=== PATIENT | female | born 1955 | race Caucasian/White ===

== ENCOUNTER 2022-01-29 09:00 | Inpatient (IN) | payer MEDICARE, BC ==
[2022-01-29] VITALS (7 sets, daily range): BP systolic 81–90; BP diastolic 44–47
[~2022-01-29] VITALS: Ht 167.6 cm; Wt 49.0 kg
[2022-01-29] MEDS ORDERED: SODIUM CHLORIDE 0.9% 1000ML 1,000 ML IV STA ×2 (09:13→10:24)
[2022-01-29 09:36] LABS: BASOPHILS % 0.1 % (0.0-1.0); EOSINOPHILS # (AUTO) 0.1 (0.0-0.4); HEMOGLOBIN 12.4 g/dL (12.0-16.0); LYMPHOCYTES # (AUTO) 0.4 (1.0-3.2); LYMPHOCYTES % 3.8 % (18.0-39.1); MEAN CORPUSCULAR HEMOGLOBIN 31.5 pg (28-32); MEAN CORPUSCULAR HGB CONC 36.5 g/dL (31-35); MEAN CORPUSCULAR VOLUME 86.3 fL (81-99); MONOCYTES # (AUTO) 0.8 (0.2-0.8); MONOCYTES % 8.3 % (4.4-11.3); NEUTROPHILS # (AUTO) 7.8 (2.1-6.9); NEUTROPHILS % 84.4 % (38.7-80.0); PLATELET COUNT 227 x10e3/uL (140-360); RED BLOOD COUNT 3.94 x10e6/uL (3.6-5.1); RED CELL DISTRIBUTION WIDTH 14.1 % (11.7-14.4)
[2022-01-29] MEDS ORDERED: AMIODARONE HCL 150 MG/100 ML BAG IV ONE (09:45)
[2022-01-29 09:53] LABS: INR 1.16; PARTIAL THROMBOPLASTIN TIME 20.2 seconds (23.8-35.5); PROTHROMBIN TIME 15.8 seconds (11.9-14.5)
[2022-01-29] MEDS ORDERED: AMIODARONE 900MG 500 ML IV SCH ×2 (10:00→16:05)
[2022-01-29] MEDS ORDERED: METOPROLOL TARTRATE 25 MG TAB PO ONE (10:30)
[2022-01-29 10:44] LABS: ALANINE AMINOTRANSFERASE 21 IU/L (0-55); ALBUMIN 1.9 g/dL (3.5-5.0); ALBUMIN/GLOBULIN RATIO 0.7 (0.8-2.0); ALKALINE PHOSPHATASE 61 IU/L (40-150); ANION GAP 14.6 mmol/L (8-16); BLOOD UREA NITROGEN 38 mg/dL (7-26); BUN/CREATININE RATIO 55 (6-25); CALCIUM 7.8 mg/dL (8.4-10.2); CARBON DIOXIDE 16 mmol/L (22-29); CHLORIDE 100 mmol/L (98-107); CREATINE KINASE 28 IU/L (29-168); CREATININE, SERUM 0.69 mg/dL (0.57-1.11); GLUCOSE 113 mg/dL (74-118); MAGNESIUM 2.7 MG/DL (1.3-2.1); POTASSIUM 4.6 mmol/L (3.5-5.1); SODIUM 126 mmol/L (136-145)
[2022-01-29 10:56] LABS: LIPASE < 4 U/L (8-78)
[2022-01-29 11:01] LABS: FREE THYROXINE INDEX 1.1979 (1.4-3.8); THYROID STIMULATING HORMONE 0.861 uIU/mL (0.350-4.940)
[2022-01-29 12:36] LABS: COLOR,URINE YELLOW (YELLOW)
[2022-01-29 12:37] LABS: CLARITY,URINE CLEAR (CLEAR); KETONES,URINE NEGATIVE (NEGATIVE); LEUKOCYTE ESTERASE ,URINE NEGATIVE (NEGATIVE); NITRITE,URINE NEGATIVE (NEGATIVE); PROTEIN,URINE DIPSTICK NEGATIVE (NEGATIVE); URINE UROBILINOGEN 0.2 mg/dL (0.2 - 1)
[2022-01-29] MEDS ORDERED: ENOXAPARIN SOD INJ 60 MG/0.6 ML SYR SC SCH (12:45)
[2022-01-29 12:49] LABS: BAND NEUTROPHILS % (MANUAL) 7 %; LYMPHOCYTES % (MANUAL) 3 % (19-48); METAMYELOCYTES % (MANUAL) 4 % (0-0); MONOCYTES % (MANUAL) 4 % (3.4-9.0); MYELOCYTES % (MANUAL) 1 % (0-0); NEUTROPHILS % (MANUAL) 81 % (40-74); PLATELET ESTIMATE ADEQUATE; PLATELET MORPHOLOGY COMMENT NORMAL
[2022-01-29 12:50] LABS: RBC MORPHOLOGY COMMENT NORMAL
[2022-01-29 12:55] LABS: BACTERIA,URINE RARE /HPF; EPITHELIAL CELLS,URINE FEW /LPF; RBC,URINE 0-5 /HPF (0-5); TRANSITIONAL EPI CELLS,URINE RARE; WBC,URINE (MAN) 0-5 /HPF (0-5)
[2022-01-29] MEDS: VANCOMYCIN HCL 125 MG CAPSULE PO SCH ×2 (13:19→18:42)
[2022-01-29] MEDS: SODIUM BICARBONATE 8.4% 50 ML in DEXTROSE 5%/0.45% SOD CHL 1,000 ML IV SCH (16:46)
[2022-01-29] MEDS: ENOXAPARIN SOD INJ 60 MG/0.6 ML SYR SC SCH (17:26)
[2022-01-29] MEDS ORDERED: ALEVE220 M1 PO (18:39)
[2022-01-29] MEDS ORDERED: FERROUS SULFAT325 MG PO (18:39)
[2022-01-29] MEDS ORDERED: D3-5000125 MCG PO (18:39)
[2022-01-29] MEDS ORDERED: METHIMAZOLE5 MG PO (18:39)
[2022-01-29] MEDS ORDERED: CYMBALTA30 MG PO (18:39)
[2022-01-29] MEDS ORDERED: ALENDRONATE SODI5 MG PO (18:39)
[2022-01-29] MEDS ORDERED: LOPERAMIDE2 MG PO (18:39)
[2022-01-29] MEDS ORDERED: CO Q-10 100 MG1 EACH PO (18:39)
[2022-01-29] MEDS: METOPROLOL TARTRATE 25 MG TAB PO SCH (18:44)
[2022-01-29 21:07] LABS: CREATINE KINASE 16 IU/L (29-168)
[2022-01-29 22:05] LABS: FREE T4 (FREE THYROXINE) 0.72 ng/dL (0.8-1.8); THYROID STIMULATING HORMONE 0.948 uIU/mL (0.350-4.940)
[2022-01-30] VITALS (19 sets, daily range): BP systolic 81–105; BP diastolic 47–58
[2022-01-30] MEDS: VANCOMYCIN HCL 125 MG CAPSULE PO SCH ×5 (00:04→23:49)
[2022-01-30 00:51] LABS: CREATINE KINASE 13 IU/L (29-168)
[2022-01-30] MEDS: SODIUM BICARBONATE 8.4% 50 ML in DEXTROSE 5%/0.45% SOD CHL 1,000 ML IV SCH ×3 (01:59→20:05)
[2022-01-30] MEDS: ENOXAPARIN SOD INJ 60 MG/0.6 ML SYR SC SCH (05:19)
[2022-01-30 06:36] LABS: BASOPHILS % 0.4 % (0.0-1.0); EOSINOPHILS # (AUTO) 0.1 (0.0-0.4); HEMOGLOBIN 9.7 g/dL (12.0-16.0); LYMPHOCYTES # (AUTO) 0.5 (1.0-3.2); LYMPHOCYTES % 6.5 % (18.0-39.1); MEAN CORPUSCULAR HEMOGLOBIN 31.2 pg (28-32); MEAN CORPUSCULAR HGB CONC 37.3 g/dL (31-35); MEAN CORPUSCULAR VOLUME 83.6 fL (81-99); MONOCYTES # (AUTO) 0.5 (0.2-0.8); MONOCYTES % 7.8 % (4.4-11.3); NEUTROPHILS # (AUTO) 5.7 (2.1-6.9); NEUTROPHILS % 82.3 % (38.7-80.0); PLATELET COUNT 151 x10e3/uL (140-360); RED BLOOD COUNT 3.11 x10e6/uL (3.6-5.1); RED CELL DISTRIBUTION WIDTH 13.5 % (11.7-14.4)
[2022-01-30 07:00] LABS: ALANINE AMINOTRANSFERASE 20 IU/L (0-55); ALBUMIN 1.5 g/dL (3.5-5.0); ALBUMIN/GLOBULIN RATIO 0.6 (0.8-2.0); ALKALINE PHOSPHATASE 54 IU/L (40-150); ANION GAP 13.3 mmol/L (8-16); BLOOD UREA NITROGEN 21 mg/dL (7-26); BUN/CREATININE RATIO 38 (6-25); CALCIUM 7.2 mg/dL (8.4-10.2); CARBON DIOXIDE 17 mmol/L (22-29); CHLORIDE 104 mmol/L (98-107); CHOLESTEROL 63 MD/DL (0-199); CREATININE, SERUM 0.55 mg/dL (0.57-1.11); GLUCOSE 156 mg/dL (74-118); HDL CHOLESTEROL < 5 MG/DL (40-60); LDL CHOLESTEROL 31 MG/DL (60-130); POTASSIUM 4.3 mmol/L (3.5-5.1); SODIUM 130 mmol/L (136-145); TRIGLYCERIDES 134 MG/DL (0-149)
[2022-01-30 07:13] LABS: CREATINE KINASE 12 IU/L (29-168)
[2022-01-30] MEDS: METOPROLOL TARTRATE 25 MG TAB PO SCH ×2 (09:00→17:00)
[2022-01-30] MEDS: ASPIRIN 81 MG ENTERIC COATED PO SCH (10:58)
[2022-01-30 12:54] LABS: BAND NEUTROPHILS % (MANUAL) 4 %; LYMPHOCYTES % (MANUAL) 3 % (19-48); MONOCYTES % (MANUAL) 3 % (3.4-9.0); NEUTROPHILS % (MANUAL) 79 % (40-74); PLATELET ESTIMATE ADEQUATE; PLATELET MORPHOLOGY COMMENT NORMAL; RBC MORPHOLOGY COMMENT NORMAL
[2022-01-30] MEDS: ENOXAPARIN SOD INJ 40 MG/0.4 ML SYR SC SCH (17:38)
[2022-01-30] MEDS ORDERED: VANCOMYCIN 250MG/5ML ORAL SOLN PO SCH (18:00)
[2022-01-30] MEDS: LACTOBACILLUS ACIDOPHILUS CAPSULE PO SCH (20:05)
[2022-01-31] VITALS (15 sets, daily range): BP systolic 90–114; BP diastolic 48–59
[2022-01-31] MEDS: VANCOMYCIN HCL 125 MG CAPSULE PO SCH ×3 (05:37→18:08)
[2022-01-31 06:55] LABS: BASOPHILS % 0.2 % (0.0-1.0); EOSINOPHILS # (AUTO) 0.1 (0.0-0.4); EOSINOPHILS % 1.4 % (0.0-6.0); HEMATOCRIT 24.6 % (34.2-44.1); HEMOGLOBIN 9.5 g/dL (12.0-16.0); LYMPHOCYTES # (AUTO) 0.6 (1.0-3.2); LYMPHOCYTES % 9.7 % (18.0-39.1); MEAN CORPUSCULAR HEMOGLOBIN 31.6 pg (28-32); MEAN CORPUSCULAR HGB CONC 38.6 g/dL (31-35); MEAN CORPUSCULAR VOLUME 81.7 fL (81-99); MONOCYTES # (AUTO) 0.7 (0.2-0.8); MONOCYTES % 11.6 % (4.4-11.3); NEUTROPHILS # (AUTO) 4.2 (2.1-6.9); NEUTROPHILS % 66.7 % (38.7-80.0); PLATELET COUNT 143 x10e3/uL (140-360); RED BLOOD COUNT 3.01 x10e6/uL (3.6-5.1); RED CELL DISTRIBUTION WIDTH 13.6 % (11.7-14.4)
[2022-01-31 07:19] LABS: ALBUMIN 1.4 g/dL (3.5-5.0); ALBUMIN/GLOBULIN RATIO 0.6 (0.8-2.0); ANION GAP 8.8 mmol/L (8-16); CALCIUM 7.1 mg/dL (8.4-10.2); CREATININE, SERUM 0.41 mg/dL (0.57-1.11); POTASSIUM 3.8 mmol/L (3.5-5.1)
[2022-01-31] MEDS: ONDANSETRON HCL INJ 2MG/ML 2ML 2 MG/ML VIAL IV PRN ×2 (08:28→23:48)
[2022-01-31 08:46] LABS: BAND NEUTROPHILS % (MANUAL) 3 %; LYMPHOCYTES % (MANUAL) 16 % (19-48); METAMYELOCYTES % (MANUAL) 1 % (0-0); MONOCYTES % (MANUAL) 14 % (3.4-9.0); NEUTROPHILS % (MANUAL) 65 % (40-74); PLATELET ESTIMATE ADEQUATE; PLATELET MORPHOLOGY COMMENT NORMAL; RBC MORPHOLOGY COMMENT NORMAL
[2022-01-31] MEDS: LACTOBACILLUS ACIDOPHILUS CAPSULE PO SCH ×3 (08:53→19:39)
[2022-01-31] MEDS: ASPIRIN 81 MG ENTERIC COATED PO SCH (08:54)
[2022-01-31] MEDS: METOPROLOL TARTRATE 25 MG TAB PO SCH ×2 (08:54→17:00)
[2022-01-31] MEDS: LACTATED RINGER'S 1,000 ML INJ SCH ×2 (09:39→19:52)
[2022-01-31 11:02] LABS: AMYLASE 22 U/L (25-125)
[2022-01-31 11:06] LABS: LIPASE < 4 U/L (8-78)
[2022-02-01] VITALS (9 sets, daily range): BP systolic 103–119; BP diastolic 51–62
[2022-02-01] MEDS: VANCOMYCIN HCL 125 MG CAPSULE PO SCH ×5 (01:52→22:52)
[2022-02-01 06:11] LABS: BASOPHILS % 0.4 % (0.0-1.0); EOSINOPHILS # (AUTO) 0.1 (0.0-0.4); EOSINOPHILS % 1.7 % (0.0-6.0); HEMATOCRIT 27.4 % (34.2-44.1); LYMPHOCYTES # (AUTO) 0.9 (1.0-3.2); LYMPHOCYTES % 17.4 % (18.0-39.1); MEAN CORPUSCULAR HEMOGLOBIN 31.4 pg (28-32); MEAN CORPUSCULAR HGB CONC 36.5 g/dL (31-35); MEAN CORPUSCULAR VOLUME 86.2 fL (81-99); MONOCYTES # (AUTO) 0.6 (0.2-0.8); MONOCYTES % 11.5 % (4.4-11.3); NEUTROPHILS # (AUTO) 2.9 (2.1-6.9); NEUTROPHILS % 53.7 % (38.7-80.0); PLATELET COUNT 165 x10e3/uL (140-360); RED BLOOD COUNT 3.18 x10e6/uL (3.6-5.1); RED CELL DISTRIBUTION WIDTH 14.1 % (11.7-14.4)
[2022-02-01 06:42] LABS: ALBUMIN 1.4 g/dL (3.5-5.0); ALBUMIN/GLOBULIN RATIO 0.6 (0.8-2.0); ANION GAP 13.1 mmol/L (8-16); CALCIUM 7.3 mg/dL (8.4-10.2); CREATININE, SERUM 0.48 mg/dL (0.57-1.11); POTASSIUM 4.1 mmol/L (3.5-5.1)
[2022-02-01] MEDS: LACTOBACILLUS ACIDOPHILUS CAPSULE PO SCH ×3 (09:01→20:48)
[2022-02-01] MEDS: ASPIRIN 81 MG ENTERIC COATED PO SCH (09:02)
[2022-02-01] MEDS: METOPROLOL TARTRATE 25 MG TAB PO SCH ×2 (09:02→16:48)
[2022-02-01] MEDS: LACTATED RINGER'S 1,000 ML INJ SCH ×2 (09:08→22:52)
[2022-02-01] MEDS ORDERED: FISH OIL 1,001000 M1 PO (09:11)
[2022-02-01] MEDS ORDERED: MULTI-VITAMIN1 EACH PO (09:11)
[2022-02-01 10:11] LABS: EOSINOPHILS % (MANUAL) 2 % (0-7); LYMPHOCYTES % (MANUAL) 18 % (19-48); MONOCYTES % (MANUAL) 11 % (3.4-9.0); MYELOCYTES % (MANUAL) 7 % (0-0); NEUTROPHILS % (MANUAL) 62 % (40-74); PLATELET ESTIMATE ADEQUATE; PLATELET MORPHOLOGY COMMENT NORMAL; RBC MORPHOLOGY COMMENT NORMAL
[2022-02-01] MEDS: RIFAXIMIN 550 MG TABLET PO SCH (16:48)
[2022-02-01] MEDS: ENOXAPARIN SOD INJ 40 MG/0.4 ML SYR SC SCH (16:48)
[2022-02-01] MEDS: CHOLESTYRAMINE 4 GM PACKET PO SCH (16:49)
[2022-02-02 00:41] VITALS: BP 111/54
[2022-02-02 05:28] VITALS: BP 111/58
[2022-02-02] MEDS: VANCOMYCIN HCL 125 MG CAPSULE PO SCH ×2 (05:47→11:50)
[2022-02-02 06:46] LABS: BASOPHILS # (AUTO) 0.1 (0.0-0.1); BASOPHILS % 0.6 % (0.0-1.0); EOSINOPHILS # (AUTO) 0.1 (0.0-0.4); HEMATOCRIT 30.5 % (34.2-44.1); HEMOGLOBIN 10.9 g/dL (12.0-16.0); LYMPHOCYTES % 9.6 % (18.0-39.1); MEAN CORPUSCULAR HEMOGLOBIN 31.4 pg (28-32); MEAN CORPUSCULAR HGB CONC 35.7 g/dL (31-35); MEAN CORPUSCULAR VOLUME 87.9 fL (81-99); MONOCYTES # (AUTO) 0.8 (0.2-0.8); MONOCYTES % 7.4 % (4.4-11.3); NEUTROPHILS # (AUTO) 7.9 (2.1-6.9); NEUTROPHILS % 73.1 % (38.7-80.0); PLATELET COUNT 249 x10e3/uL (140-360); RED BLOOD COUNT 3.47 x10e6/uL (3.6-5.1); RED CELL DISTRIBUTION WIDTH 14.3 % (11.7-14.4)
[2022-02-02 07:01] LABS: CALCIUM 7.7 mg/dL (8.4-10.2); CREATININE, SERUM 0.49 mg/dL (0.57-1.11)
[2022-02-02 08:11] VITALS: BP 104/53
[2022-02-02 08:28] LABS: ALBUMIN 1.6 g/dL (3.5-5.0); ALBUMIN/GLOBULIN RATIO 0.6 (0.8-2.0); CALCIUM 7.8 mg/dL (8.4-10.2); CREATININE, SERUM 0.5 mg/dL (0.57-1.11)
[2022-02-02] MEDS: METOPROLOL TARTRATE 25 MG TAB PO SCH (09:16)
[2022-02-02] MEDS: CHOLESTYRAMINE 4 GM PACKET PO SCH (09:16)
[2022-02-02] MEDS: ASPIRIN 81 MG ENTERIC COATED PO SCH (09:16)
[2022-02-02] MEDS: RIFAXIMIN 550 MG TABLET PO SCH (09:16)
[2022-02-02] MEDS: LACTOBACILLUS ACIDOPHILUS CAPSULE PO SCH (09:16)
[2022-02-02 09:31] VITALS: BP 104/53
[2022-02-02 12:10] VITALS: BP 109/53
[2022-02-02] MEDS ORDERED: METOPROLOL TART25 MG PO (13:26)
[2022-02-02] MEDS ORDERED: VANCOCIN HCL250 MG PO (13:26)
[2022-02-02] MEDS ORDERED: XIFAXAN550 MG PO (13:27)
[2022-02-02] MEDS ORDERED: LOMOTIL TABLET1 EACH PO (13:28)
[2022-02-02] MEDS ORDERED: DIPHENOXYLATE/ATROPINE TAB PO ONE (13:30)
== END 2022-02-02 14:23 | disposition home or self-care (01) | DRG 372 ==
LOC: ER 09:13 → ERHOLD 12:48 → ICU 17:03 → MED/SURG2 01-31 15:30
PROC: 02HV33Z Insertion of Infusion Device into Superior Vena Cava, Percutaneous Approach (ICD-10-PCS; principal; 2022-01-29)
DX: A04.72 Enterocolitis due to Clostridium difficile, not specified as recurrent (principal); E87.1 Hypo-osmolality and hyponatremia; K52.1 Toxic gastroenteritis and colitis; E87.20 Acidosis, unspecified; I48.0 Paroxysmal atrial fibrillation; E86.0 Dehydration; F32.9 Major depressive disorder, single episode, unspecified; M81.0 Age-related osteoporosis without current pathological fracture; T36.0X5A Adverse effect of penicillins, initial encounter; T36.1X5A Adverse effect of cephalosporins and other beta-lactam antibiotics, initial encounter; E05.90 Thyrotoxicosis, unspecified without thyrotoxic crisis or storm; Z20.822 Contact with and (suspected) exposure to COVID-19; D64.9 Anemia, unspecified
CPT/HCPCS: 36415; 36569; 71045; 74177; 80048; 80053; 80061; 81001; 82150; 82550; 82553; 83605; 83690; 83735; 83880; 84436; 84439; 84443; 84479; 84481; 84484; 85025; 85610; 85730; 86376; 87040; 87086; 87324; 87449; 93005; 93306; 94799; 99251; 99284; J1650; J2405; J2543; J7030; J7121